=== PATIENT | male | born 1980 | race Caucasian/White ===

== ENCOUNTER 2021-01-15 10:18 | Day surgery (SDC) | payer OTHER ==
[~2021-01-15] VITALS: Ht 182.9 cm; Wt 77.3 kg
[2021-01-15] MEDS ORDERED: MAGNESIUM OXID500 MG PO (11:30)
[2021-01-15] MEDS ORDERED: FISH OIL 1,2001 EAC1 PO (11:30)
[2021-01-15] MEDS ORDERED: ZINC15 PO (11:30)
[2021-01-15] MEDS ORDERED: MULTIPLE VITAM1 EACH PO (11:30)
[2021-01-15] MEDS ORDERED: GLUC500 PO (11:31)
--- NOTE | 2021-01-15 13:25 | NUR ---
01/15/21 1325 EFFIE MCKEON PAIN 12/22
== END 2021-01-15 14:06 | disposition home or self-care (01) ==
LOC: ORSCSDS 10:18
PROVIDERS: Orthopaedic Surgery
PROC: 0LQP0ZZ Repair Left Lower Leg Tendon, Open Approach (ICD-10-PCS; principal; 2021-01-15 11:30)
DX: S86.012A Strain of left Achilles tendon, initial encounter (principal); J44.9 Chronic obstructive pulmonary disease, unspecified; F17.210 Nicotine dependence, cigarettes, uncomplicated
CPT/HCPCS: A9270; J1100; J1885; J2250; J2405; J2704; J2795; J3010; J3370; J7120